=== PATIENT | female | born 1930 | race African-American/Black ===

== ENCOUNTER → 2017-06-09 | Outpatient (REF) | payer MEDICARE, MEDICAID ==
[2016-03-17 12:20] VITALS: BMI 24.0
[~2017-06-09] MED LIST: ACET-2031 PO; AML5 PO; AMLO-1 PO; AMLO-99 PO; ASP81 PO; ASPI-1471 PO; ASPI-715 PO; ASPIRIN; ATE50 PO; ATEN-1 PO; ATENOLOL 50 MG; AZIT500T47 PO; BACDS PO; BENZ100C26 PO; BLOOD PRESSURE PILL; CELE-1 PO; CELE100C79 PO; CETI-169 PO; CIMETIDINE; CIPR-214 PO; CLO75 PO; DICL100G39 TOP; EZET1TAB55 PO; EZET1TAB81 PO; FLUT16SP19; FLUT16SP19 NS; FURO-45 PO; IRO150 PO; LID5T TP; LISI-1 PO; LORA-802 PO; LOSA50TA72 PO; MEMA10TA18 PO; MEMA1TAB2 PO; MIR15 PO; MIRT-1 PO; MIRTAZAPINE; MULT-839 PO; MULT-865 PO; NIT4 SL; NITR0.4T3 SL; NITROQUICK; OMEP-125 PO; PANT40TA65 PO; PLAVIX 75 MG; QUET25TA PO; SIMV-49 PO; SULF1TAB24 PO; TRIA1CAP81 PO; TRIAMT/HCTZ 37.5-25; ULCER MED; WATER PILL; [UNRECOGNIZED DRUG - CODE] PO; [UNRECOGNIZED DRUG - CODE] PO; [UNRECOGNIZED DRUG - OTHER]; triam/hctz
== END ==
LOC: ZZLCC 07:25
PROVIDERS: ATTEND Nurse Practitioner Family
DX: Z79.899 Other long term (current) drug therapy (principal)
CPT/HCPCS: 82040; 82247; 82310; 82374; 82435; 82565; 82947; 84075; 84132; 84155; 84295; 84450; 84460; 84520; 85027

== ENCOUNTER → 2017-10-16 | Outpatient (REF) | payer MEDICARE, MEDICAID ==
[2016-03-17 12:20] VITALS: BMI 24.0
== END ==
LOC: ZZLCC 17:01
PROVIDERS: ATTEND Nurse Practitioner Family
DX: I50.9 Heart failure, unspecified (principal); I10 Essential (primary) hypertension; Z79.899 Other long term (current) drug therapy
CPT/HCPCS: 82040; 82247; 82310; 82374; 82435; 82565; 82947; 83880; 84075; 84132; 84155; 84295; 84450; 84460; 84520

== ENCOUNTER → 2018-03-09 | Outpatient (REF) | payer MEDICARE, MEDICAID ==
[2016-03-17 12:20] VITALS: BMI 24.0
[~2018-03-09] MED LIST changes: +AMLO-127 PO; -AMLO-99 PO; -LOSA50TA72 PO; +LOSA50TA80 PO
[2018-03-09 07:46] LABS: PLATELET COUNT, AUTOMATED 307 K/uL (150-450)
== END ==
LOC: ZZLCC 07:34
PROVIDERS: ATTEND Nurse Practitioner Family
DX: I50.9 Heart failure, unspecified (principal); N18.9 Chronic kidney disease, unspecified; Z79.899 Other long term (current) drug therapy
CPT/HCPCS: 82040; 82247; 82310; 82374; 82435; 82565; 82947; 83880; 84075; 84132; 84155; 84295; 84450; 84460; 84520; 85025

== ENCOUNTER → 2018-06-03 | Outpatient (REF) | payer MEDICARE, MEDICAID ==
[2016-03-17 12:20] VITALS: BMI 24.0
== END ==
LOC: ZZLCC 14:45
PROVIDERS: ATTEND Nurse Practitioner Family
DX: R31.9 Hematuria, unspecified (principal)
CPT/HCPCS: 81001; 87088

== ENCOUNTER → 2018-06-25 | Outpatient (REF) | payer MEDICARE, MEDICAID ==
[2016-03-17 12:20] VITALS: BMI 24.0
[2018-06-25 15:41] LABS: PLATELET COUNT, AUTOMATED 362 K/uL (150-450)
== END ==
LOC: ZZLCC 14:56
PROVIDERS: ATTEND Nurse Practitioner Family
DX: I11.0 Hypertensive heart disease with heart failure (principal); I50.9 Heart failure, unspecified; Z79.899 Other long term (current) drug therapy
CPT/HCPCS: 82040; 82247; 82310; 82374; 82435; 82565; 82947; 83880; 84075; 84132; 84155; 84295; 84443; 84450; 84460; 84520; 85025

== ENCOUNTER → 2018-07-21 | Outpatient (REF) | payer MEDICARE, MEDICAID ==
[2016-03-17 12:20] VITALS: BMI 24.0
[~2018-07-21] MED LIST changes: -OMEP-125 PO; +OMEP-126 PO
== END ==
LOC: ZZLCC 10:34
PROVIDERS: ATTEND Nurse Practitioner Family
DX: R31.9 Hematuria, unspecified (principal); B96.1 Klebsiella pneumoniae [K. pneumoniae] as the cause of diseases classified elsewhere
CPT/HCPCS: 81001; 87077; 87088; 87186